=== PATIENT | female | born 1990 | race Caucasian/White ===

== ENCOUNTER 2017-08-12 12:30 | Inpatient (IN) ==
[2017-08-12] MEDS ORDERED: CefOXitin Inj 2 GM in Sodium Chloride 0.9% 100 ML IV PRN (19:11)
[2017-08-12] MEDS ORDERED: Nalbuphine Inj 20 MG/ML Ampule IVP PRN (19:11)
[2017-08-12] MEDS ORDERED: LIDOCAINE W/ SODIUM BICARB 0.5 ML SYR SUBD PRN (19:11)
[2017-08-12] MEDS ORDERED: CALCIUM CARBONATE 500 MG (TUMS) CHEWABLE TABLET PO PRN (19:11)
[2017-08-12] MEDS ORDERED: METHYLERGONOVINE MALEATE 0.2 MG/1 ML VIAL IM PRN (19:11)
[2017-08-12] MEDS ORDERED: NALOXONE 0.4 MG/1 ML VIAL IVP PRN (19:11)
[2017-08-12] MEDS ORDERED: ONDANSETRON 4 MG/2 ML VIAL IVP PRN (19:11)
[2017-08-12] MEDS ORDERED: CITRIC ACID/SODIUM CITRATE 30 ML CUP PO PRN (19:11)
[2017-08-12] MEDS ORDERED: MISOPROSTOL 200 MCG TABLET RECTAL PRN (19:11)
[2017-08-12] MEDS ORDERED: NORMAL SALINE 10 ML SYRINGE FLUSH IVP PRN (19:11)
[2017-08-12] MEDS ORDERED: Naloxone Inj 0.01 MG in Normal Saline Flush 1 ML IVP PRN (19:11)
[2017-08-12] MEDS ORDERED: OXYTOCIN 10 UNIT/1 ML IM PRN (19:11)
[2017-08-12] MEDS ORDERED: Metoclopramide Inj 10 MG/2 ML VIAL IV PRN (19:11)
[2017-08-12] MEDS ORDERED: Famotidine Inj 20 MG in Normal Saline Flush 10 ML IVP PRN ×4 (19:11)
[2017-08-12] MEDS ORDERED: LIDOCAINE HCL 2 % 10 ML JELLY URO-JECT TOPICAL PRN (19:11)
[2017-08-12] MEDS ORDERED: BUTORPHANOL TARTRATE 2 MG/1 ML VIAL IVP PRN (19:11)
[2017-08-12] MEDS ORDERED: Phenylephrine Inj 50 MCG in Normal Saline Flush 0.5 ML IVP PRN (19:11)
[2017-08-12] MEDS ORDERED: diphenhydrAMINE 50 MG/1 ML VIAL IVP PRN (19:11)
[2017-08-12] MEDS ORDERED: Lidocaine 1% 10 MG/ML - 20 ML VIAL SUBCUT PRN (19:11)
[2017-08-12] MEDS ORDERED: TERBUTALINE SULFATE 1 MG/1 ML SDV SUBCUT PRN (19:11)
[2017-08-12] MEDS ORDERED: Carboprost Inj 250 MCG/ML AMP IM PRN (19:11)
[2017-08-12] MEDS ORDERED: ePHEDrine Inj 5 MG in Normal Saline Flush 1 ML IVP PRN (19:11)
[2017-08-12] MEDS ORDERED: fentaNYL Inj 100 MCG/2 ML VIAL IV PRN (19:11)
[2017-08-12] MEDS ORDERED: Oxytocin 20 Units + LR 20 UNIT/1,000 ML BAG IV SCH (19:15)
[2017-08-12 21:28] LABS: Hematocrit [HCT] 37.3 % (37.0-47.0); Hemoglobin [HGB] 12.9 g/dL (12.0-16.0); MEAN CORPUSCULAR HEMOGLOBIN 30.4 PG (27-31); MEAN CORPUSCULAR HGB CONC 34.6 g/dL (33-37); MEAN PLATELET VOLUME 13.4 FL (7.4-12.2); RED BLOOD COUNT 4.24 10^6/uL (4.20-5.40)
[2017-08-13] MEDS ORDERED: Oxytocin 20 Units + LR 20 UNIT/1,000 ML BAG IV SCH ×2 (08:15→16:18)
[2017-08-13] MEDS: Lactated Ringers-OB Dept 1,000 ML PRIMARY IV SCH ×3 (08:56→17:14)
[2017-08-13] MEDS ORDERED: Fent/Bupiv 2mcg/0.0625% Epid 250 ML ONE (13:44)
--- NOTE | 2017-08-13 15:13 | OB.DEL.SUM ---
Delivery Note Delivery Summary: This 26 yo G1 now P1 presented yesterday in latent labor. She went home and returned a short time later with increasing force and frequency of contractions. She was admitted at 3-4 cm dilation and observed overnight. Pitocin was begun this AM and amniotomy was performed at 4 cm dilation with return of clear fluid. The patient then progressed rapidly into active labor and had a rapid active phase, achieving complete dilation at +2 station. FHRT remained category 1 throughout labor. She pushed for a short time to of a viable male infant, Apgars 9/10, over a second degree vaginal/perineal laceration from OA position. Repair was made with 3-0 Vicryl Rapide suture in the usual manner. The placenta was then delivered without difficulty, intact, with a 3 vessel cord. Mild atony responded well to bimanual massage and pitocin. EBL 300 ml. There were no complications. Mother and baby tolerated delivery well.
--- NOTE | 2017-08-13 15:34 | CRNA.PROCE ---
Central Neuraxis Block Placemt - - Safety Measures: Time Out Taken, Site Verified - - Type of Block: Epidural Reason for Block: Analgesia Moniters Used During Block: EKG, SPO2, NIBP Positioning: Sitting Skin Prep Used: Betadine Introducer User: 18 Gauge Miles Local Anesthetic - Enter Amount Used in Comment Field: 5.0 % Xylocaine with Dextrose (ml): Yes (5ml test dose neg) Number of Centimeters Catheter Threaded: 4 Bioclusive Dressing Applied: Yes Anesthesia Time - Other Weight: 77.111 kg Height: 5 ft 2 in Body Mass Index (BMI): 31.1
--- NOTE | 2017-08-13 15:35 | CRNA.PROGR ---
Anesthesia Time - - Start date: 08/13/17 End date: 08/13/17 - Procedure/Recovery Time Anesthesia : Time In: 13:10 Anesthesia : Time Out: 13:30 Anesthesia : Total Time: 20 - Total Anesthesia Time Total Anesthesia Time (minutes): 20 - Other Weight: 77.111 kg Height: 5 ft 2 in Body Mass Index (BMI): 31.1 Physical Status: P2 Anesthesia Type: Epidural Obstetrics: Planned vaginal delivery w/ neuraxial labor anesthesia/analog
[2017-08-13] MEDS ORDERED: ACETAMINOPHEN 325 MG TABLET PO PRN (16:18)
[2017-08-13] MEDS ORDERED: HYDROcodone-APAP 5 MG -325 MG TABLET PO PRN (16:18)
[2017-08-13] MEDS ORDERED: GLYCERIN/WITCH HAZEL 1 BOX TOPICAL PRN (16:18)
[2017-08-13] MEDS ORDERED: ONDANSETRON 4 MG/2 ML VIAL IVP PRN (16:18)
[2017-08-13] MEDS ORDERED: CALCIUM CARBONATE 500 MG (TUMS) CHEWABLE TABLET PO PRN (16:18)
[2017-08-13] MEDS ORDERED: LIDOCAINE HCL 2 % 10 ML JELLY URO-JECT TOPICAL PRN (16:18)
[2017-08-13] MEDS ORDERED: Ondansetron ODT Tab 4 MG TAB PO PRN (16:18)
[2017-08-13] MEDS ORDERED: Nalbuphine Inj 20 MG/ML Ampule IVP PRN (16:18)
[2017-08-13] MEDS ORDERED: IBUPROFEN 800 MG TABLET PO PRN (16:18)
[2017-08-13] MEDS ORDERED: NORMAL SALINE 10 ML SYRINGE FLUSH IVP PRN (16:18)
[2017-08-13] MEDS ORDERED: diphenhydrAMINE 50 MG/1 ML VIAL IVP PRN (16:18)
[2017-08-13] MEDS ORDERED: DIPH,PERTUSS,TET(ADACEL) VAC/PF 0.5 ML (Tdap) IM ONE (16:18)
[2017-08-13] MEDS ORDERED: diphenhydrAMINE 25 MG CAPSULE PO PRN (16:18)
[2017-08-13] MEDS ORDERED: BENZOCAINE/MENTHOL SPRAY 56 GM BOTTLE TOPICAL PRN (16:18)
[2017-08-13] MEDS ORDERED: LANOLIN HPA 40 GM TUBE TOPICAL PRN (16:18)
[2017-08-13] MEDS: DOCUSATE 100 MG CAPSULE PO SCH (21:27)
[2017-08-14 08:00] VITALS: BP 117/85; RESP 16; TEMP 98; O2SAT 97
--- NOTE | 2017-08-14 08:20 | OB.PROGRES ---
Subjective Post Op Day: 1 Pain Management: PO [place] Catheter: No Flatus: Yes Diet: Regular Feeding Method: Exculsively Ambulating: Yes Assesstment / Plan Assessment / Plan: Doing well. Normal lochia. Would like to go home.
--- NOTE | 2017-08-14 08:22 | DCSUMMARY ---
Hospitalization Summary Admit Date: 08/12/17 Discharge Date: 08/14/17 Primary Diagnosis:: Term , delivered Delivery Type: Vaginal Hospital Course: Normal, uncomplicated labor, delivery, and course. / Postop Complications: None. Complications: None. Exam - Vitals Vital Signs: Vital Signs Temperature 98.0 F Temperature Source Oral Pulse Rate [Apical] 84 Pulse Rate [Pulse Oximeter] 98 Pulse Rate 84 Respiratory Rate 16 Blood Pressure [Right Arm] 117/85 Blood Pressure [Left Arm] 107/65 Blood Pressure 111/64 Pulse Ox 97 Oxygen Delivery Method Room Air Height 5 ft 2 in Weight 170 lb
[2017-08-14] MEDS: DOCUSATE 100 MG CAPSULE PO SCH (08:29)
[2017-08-14 08:36] LABS: Hematocrit [HCT] 36.5 % (37.0-47.0); Hemoglobin [HGB] 12.3 g/dL (12.0-16.0); MEAN CORPUSCULAR HEMOGLOBIN 30.1 PG (27-31); MEAN CORPUSCULAR HGB CONC 33.7 g/dL (33-37); MEAN CORPUSCULAR VOLUME 89.5 FL (81-99); MEAN PLATELET VOLUME 12.4 FL (7.4-12.2); RED BLOOD COUNT 4.08 10^6/uL (4.20-5.40)
[2017-08-14] MEDS ORDERED: Prenatal Multivitamin Tab 1 TAB TAB PO SCH (09:00)
--- NOTE | 2017-08-14 13:43 | CRNA.PROGR ---
Anesthesia Note - Progress Notes Anesthesia Progress Note: Sitting up bed visiting with spouse and nursing her baby. She has no questions or concerns regarding her anesthetic for NEREIDA analgesia. Vital Signs (Last 8 hours) Temp Pulse Pulse Resp BP Pulse Ox 08/14/17 07:29 98.0 F 84 84 16 117/85 97
[2017-08-14] MEDS ORDERED: MMR VACCINE 12500 UNIT/0.5 ML SUBCUT ONE (20:18)
== END 2017-08-14 17:00 | disposition home or self-care (01) | DRG 775 ==
LOC: OBOP 12:30 → OBIP 19:11
PROVIDERS: ADMIT Obstetrics & Gynecology; ATTEND Obstetrics & Gynecology